=== PATIENT | female | born 1945 | race Caucasian/White ===

== ENCOUNTER 2017-04-11 13:48 | Outpatient (CLI) | payer OTHER, MEDICARE ==
--- NOTE | 2017-04-11 18:24 | Ultrasound Report ---
LEFT BREAST ULTRASOUND: 04/11/2017 CLINICAL INDICATION: Palpable abnormality. TECHNIQUE: Real-time scanning was performed with volunteer patient representative static images obtained. Ultrasound of the palpable abnormality identified by the patient in the left upper-outer quadrant was performed. At the 2 o'clock position, 3 cm from the nipple, a simple cyst is again seen, now measur ing 2.9 x 2.6 x 1.3 cm (previously 2.5 x 2.3 x 1.2 cm). No sonographically suspicious findings are i dentified. IMPRESSION: SIMPLE CYST, ACCOUNTING FOR THE PALPABLE ABNORMALITY. RECOMMENDATION: ROUTINE ANNUAL SCREENING UNLESS OTHERWISE CLINICALLY INDICATED. BIRADS CATEGORY: 2, BENIGN FINDINGS. JOB #: [id number] EXT JOB #:
--- NOTE | 2017-04-11 18:27 | Mammography Report ---
DIGITAL DIAGNOSTIC BILATERAL MAMMOGRAM: 04/11/2017 CLINICAL INDICATION: Palpable abnormality left breast. TECHNIQUE: Bilateral CC and MLO views, bilateral laterally exaggerated craniocaudal views, left true lateral view. A marker was placed at the site of palpable abnormality identified by the patient. COMPARISON: 05/20/2016, 12/05/2013. FINDINGS: The breasts again demonstrate heterogeneously dense fibroglandular parenchyma bilaterally. Biopsy marker in the right upper central breast is stable. The palpable abnormality correlates wit h a partially circumscribed nodule in the left upper outer quadrant, now measuring 3 cm, increased in size from previous examinations. A few punctate, typically benign calcifications are present. Plea se also refer to left breast ultrasound of the same day. IMPRESSION: BENIGN FINDINGS, WITH A SIMPLE CYST ON ULTRASOUND CORRELATING WITH THE MAMMOGRAPHIC AND PALPABLE ABNORMALITY. RECOMMENDATION: Routine annual screening unless otherwise clinically indicated. BI-RADS category 2, benign findings. STANDARD QUALIFYING STATEMENTS 1. This examination was reviewed with the aid of Computer-Aided Detection (CAD). 2. A negative or benign imaging report should not delay biopsy if clinically suspicious findings are present. Consider surgical consultation if warranted. More than 5% of cancers are not identified by i ivis. 3. Dense breasts may obscure an underlying neoplasm. JOB #: [id number] EXT JOB #:[id number]
== END 2017-04-11 13:49 | disposition home or self-care (01) ==
LOC: DI 13:48
PROVIDERS: ATTEND Family Medicine
DX: N60.02 Solitary cyst of left breast (principal)
CPT/HCPCS: 76642; 77066

== ENCOUNTER 2017-06-16 16:45 | Outpatient (CLI) | payer MEDICARE, OTHER ==
[2017-06-16 19:12] LABS: BASOPHILS % (AUTO) 0.3 %; EOSINOPHILS % (AUTO) 0.7 %; HCT - HEMATOCRIT 41.4 % (37.0-47.0); HGB - HEMOGLOBIN 13.9 g/dL (12.0-16.0); LYMPHOCYTES # (AUTO) 2.4 10^3/uL (1.5-3.5); LYMPHOCYTES % (AUTO) 40.2 %; MEAN CORPUSCULAR HEMOGLOBIN 30.9 pg (27.0-31.0); MEAN CORPUSCULAR HGB CONC 33.5 g/dL (32.0-36.0); MEAN CORPUSCULAR VOLUME 92.2 fL (81.0-99.0); MEAN PLATELET VOLUME 7.9 fL (7.9-10.8); MONOCYTES # (AUTO) 0.5 10^3/uL (0.0-1.0); MONOCYTES % (AUTO) 8.6 %; NEUTROPHILS % (AUTO) 50.2 %; RED BLOOD COUNT 4.49 10^6/uL (4.20-5.40); RED CELL DISTRIBUTION WIDTH 13.1 % (12.0-15.0); UNCORRECTED WHITE BLOOD COUNT 5.9 x10^3/uL; WHITE BLOOD COUNT 5.9 x10^3/uL (4.8-10.8)
[2017-06-16 19:38] LABS: CALCIUM 9.1 mg/dL (8.5-10.3); CREATININE 0.9 mg/dL (0.4-1.0); POTASSIUM 3.6 mmol/L (3.5-5.0)
== END 2017-06-16 16:46 | disposition home or self-care (01) ==
LOC: LAB.WCP 16:45
PROVIDERS: ATTEND Family Medicine
DX: M12.832 Other specific arthropathies, not elsewhere classified, left wrist (principal)
CPT/HCPCS: 36415; 80048; 85025; 85651

== ENCOUNTER 2017-06-17 12:41 | Outpatient (CLI) | payer MEDICARE, OTHER ==
--- NOTE | 2017-06-17 13:37 | XRAY Report ---
EXAM: LEFT WRIST RADIOGRAPHY EXAM DATE: 06/17/2017 01:13 PM. CLINICAL HISTORY: ARTHRITIS, LEFT WRIST. Awoke to find hand red and swollen and very painful. Lump on the back of her hand, has now disappeared but bruising has spread into her fingers. COMPARISON: None. TECHNIQUE: 3 views. FINDINGS: Bones: No definite acute fractures or acute bone lesions. An ossification measuring approximately 2.3 x 7.2 mm and a smaller somewhat linear ossification just distal to that demonstrated along the dorsa l aspect of the wrist at the distal aspect distal carpal row and near the dorsal margin of the carpom etacarpal joints. This could represent degenerative disease or adjacent soft tissue calcification. Ol d fracture fragments are possibly. Acute fractures considered unlikely. Joints: Mild radiocarpal joint degenerative disease. No subluxation. Soft Tissues: Evidence of dorsal wrist soft tissue swelling. No soft tissue gas. IMPRESSION: 1. No definite acute osseous abnormality. 2. Mild degenerative disease. 3. Ossifications at the dorsal aspect of the wrist could be degenerative in nature or could represent old fracture fragments. Acute fractures are considered less likely. 4. Dorsal wrist soft tissue swelling. [facility] Referring Provider Line: [phone] SITE ID: [id number]
== END 2017-06-17 12:42 | disposition home or self-care (01) ==
LOC: DI 12:41
PROVIDERS: ATTEND Family Medicine
DX: M19.032 Primary osteoarthritis, left wrist (principal); M25.832 Other specified joint disorders, left wrist; R22.32 Localized swelling, mass and lump, left upper limb

== ENCOUNTER 2018-04-27 08:00 | Outpatient (CLI) | payer OTHER, MEDICARE ==
[2018-04-27 14:42] LABS: ALBUMIN 4.8 g/dL (3.2-5.5); ALBUMIN/GLOBULIN RATIO 1.6 (1.0-2.2); ALKALINE PHOSPHATASE 59 IU/L (42-121); ALT ALANINE AMINOTRANSFERASE 15 IU/L (10-60); AST ASPARTATE AMINOTRANSFERASE 24 IU/L (10-42); BASOPHILS % (AUTO) 0.5 %; BILIRUBIN,TOTAL 0.2 mg/dL (0.2-1.0); BUN - BLOOD UREA NITROGEN 12 mg/dL (6-20); CALCIUM 9.7 mg/dL (8.5-10.3); CARBON DIOXIDE - CO2 31 mmol/L (21-32); CHLORIDE 99 mmol/L (101-111); CREATININE 0.6 mg/dL (0.4-1.0); EOSINOPHILS % (AUTO) 0.8 %; GFR - MDRD 98 (>89); GLUCOSE 79 mg/dL (70-100); HGB - HEMOGLOBIN 15.4 g/dL (12.0-16.0); LYMPHOCYTES # (AUTO) 1.6 10^3/uL (1.5-3.5); LYMPHOCYTES % (AUTO) 35.7 %; MEAN CORPUSCULAR HEMOGLOBIN 31.1 pg (27.0-31.0); MEAN CORPUSCULAR HGB CONC 33.9 g/dL (32.0-36.0); MEAN CORPUSCULAR VOLUME 91.7 fL (81.0-99.0); MONOCYTES # (AUTO) 0.3 10^3/uL (0.0-1.0); MONOCYTES % (AUTO) 6.6 %; NEUTROPHILS # (AUTO) 2.5 10^3/uL (1.5-6.6); NEUTROPHILS % (AUTO) 56.4 %; PLT - PLATELET COUNT 287 10^3/uL (130-450); RED BLOOD COUNT 4.96 10^6/uL (4.20-5.40); RED CELL DISTRIBUTION WIDTH 13.6 % (12.0-15.0); SODIUM 139 mmol/L (135-145); TOTAL PROTEIN 7.8 g/dL (6.7-8.2); WHITE BLOOD COUNT 4.5 x10^3/uL (4.8-10.8)
[2018-04-27 15:48] LABS: THYROID STIMULATING HORMONE 1.43 uIU/mL (0.34-5.60)
[2018-04-27 15:57] LABS: FOLATE 17.27 ng/mL (5.90 - >24.8)
== END 2018-04-27 08:01 | disposition home or self-care (01) ==
LOC: LAB.WCP 08:00
PROVIDERS: ATTEND Family Medicine
DX: R41.3 Other amnesia (principal)
CPT/HCPCS: 36415; 80053; 81599; 82607; 82746; 83921; 84443; 85025; 86592

== ENCOUNTER 2018-05-22 16:38 | Outpatient (CLI) | payer OTHER, MEDICARE ==
[2018-05-22] MEDS ORDERED: GADOBUTROL 7.5 MMOL/7.5 ML VIAL ONE (17:07)
[2018-05-22] MEDS ORDERED: GADOBUTROL 7.5 MMOL/7.5 ML VIAL IVP ONE (17:51)
--- NOTE | 2018-05-23 08:56 | MRI Report ---
Reason: MEMORY LOSS Procedure Date: 05/22/2018 Accession Number: [id number] / [id number] Procedure: MRI - Brain W/WO CPT Code: FULL RESULT: EXAM: MRI BRAIN WITHOUT AND WITH CONTRAST EXAM DATE: 05/22/2018 06:06 PM. CLINICAL HISTORY: MEMORY LOSS. COMPARISON: None. TECHNIQUE: Multiplanar, multisequence T1-weighted and fluid-sensitive MR sequences of the brain were performed. Sequences optimized for routine evaluation. Other: None. Postprocessing: Brain volumetrics determined using [employer] automated analysis on a separate, stand-alone workstation as no objective measure of parenchymal volume to follow over time. IV Contrast: 6 cc Gadavist. FINDINGS: Brain Volume: Normal for age. Parenchyma: No acute parenchymal hemorrhage, mass, or midline shift. Mild bilateral areas of T2/flair signal hyperintensity seen. No areas of restricted diffusion seen to suggest acute infarct. No definite areas of abnormal hemosiderin deposition. No abnormal postcontrast enhancement. Quantitative Cerebral Volumetric Analysis: -Cortical Gonzales Matter (Percent Of Icv): Left, 223.46 Cc (14.96) Percent. Right, 215.11 Cc (14.40) Percent. . -Hippocampi: Left, 2.71 Cc (0.18) Percent. Right, 2.64 Cc (0.18) Percent. Asymmetry Index 2.84 Percent, Within Normal Limits. -Total Hippocampal Volume*: 5.35 Cc, fourth Percentile. -Hippocampi occupancy score: 0.67 -Inferior Lateral Ventricle Volume*: 2.72 Cc, 70th Percentile. (*Percentiles Adjusted For Age And Icv). Ventricles/Cisterns: No hydrocephalus. No abnormal extra-axial fluid collection or hemorrhage. Orbits: Symmetric and unremarkable. Sella Turcica: The pituitary gland, cavernous sinuses, suprasellar cistern and optic chiasm are unremarkable. IAC: Symmetric and unremarkable. Vasculature: Normal signal flow void is seen in the major arterial structures at the skull base. The dural sinuses are patent and enhance normally. Sinuses: No acute sinus disease. Bones: No focal pathologic appearing marrow signal changes. Other: None. IMPRESSION: 1. No acute intracranial pathology seen, no acute infarct, acute intracranial hemorrhage, mass, hydrocephalus, or midline shift. 2. Mild white matter changes seen that are nonspecific, but most likely represent sequela of chronic small vessel ischemic disease. 3. Hippocampi appear symmetric in size with hippocampal volume measuring 5.35 cc representing the fourth normative percentile for age. Hippocampal occupancy score measures 0.67 which is between 1-2 standard deviations below normal. Overall hippocampal values appear abnormal and may be associated with an increase incidence of Alzheimer's disease or increased risk of developing Alzheimer's disease in patients with mild cognitive impairment. [facility]
== END 2018-05-22 16:39 | disposition home or self-care (01) ==
LOC: DI 16:38
PROVIDERS: ATTEND Family Medicine
DX: R41.3 Other amnesia (principal); G93.89 Other specified disorders of brain
CPT/HCPCS: 70553; A9585

== ENCOUNTER 2018-10-26 08:00 | Outpatient (CLI) | payer OTHER, MEDICARE ==
[2018-10-26 12:56] LABS: BASOPHILS % (AUTO) 0.3 %; EOSINOPHILS % (AUTO) 0.5 %; HGB - HEMOGLOBIN 14.1 g/dL (12.0-16.0); LYMPHOCYTES # (AUTO) 1.8 10^3/uL (1.5-3.5); LYMPHOCYTES % (AUTO) 50.2 %; MEAN CORPUSCULAR HEMOGLOBIN 29.9 pg (27.0-31.0); MEAN CORPUSCULAR VOLUME 90.6 fL (81.0-99.0); MEAN PLATELET VOLUME 7.9 fL (7.9-10.8); MONOCYTES # (AUTO) 0.4 10^3/uL (0.0-1.0); NEUTROPHILS # (AUTO) 1.4 10^3/uL (1.5-6.6); PLT - PLATELET COUNT 277 10^3/uL (130-450); RED BLOOD COUNT 4.71 10^6/uL (4.20-5.40); RED CELL DISTRIBUTION WIDTH 12.8 % (12.0-15.0); WHITE BLOOD COUNT 3.7 x10^3/uL (4.8-10.8)
[2018-10-26 13:14] LABS: ALBUMIN/GLOBULIN RATIO 1.5 (1.0-2.2); BILIRUBIN,TOTAL 0.7 mg/dL (0.2-1.0); CALCIUM 9.1 mg/dL (8.5-10.3); CREATININE 0.6 mg/dL (0.4-1.0); TOTAL PROTEIN 6.6 g/dL (6.7-8.2)
== END 2018-10-26 23:59 | disposition home or self-care (01) ==
LOC: LAB.WCP 08:00
PROVIDERS: ATTEND Family Medicine
DX: E53.8 Deficiency of other specified B group vitamins (principal); K62.5 Hemorrhage of anus and rectum
CPT/HCPCS: 36415; 80053; 82607; 85025

== ENCOUNTER 2019-02-21 13:04 | Outpatient (CLI) | payer OTHER, MEDICARE ==
--- NOTE | 2019-02-22 09:45 | XRAY Report ---
Reason: COUGH, SORE THROAT Procedure Date: 02/21/2019 Accession Number: [id number] / [id number] Procedure: XR - Chest 2 View X-Ray CPT Code: 09612 FULL RESULT: EXAM: CHEST RADIOGRAPHY EXAM DATE: 02/21/2019 02:13 PM. CLINICAL HISTORY: COUGH, SORE THROAT. COMPARISON: XR CHEST PA AND LAT 11/03/2012 10:53 AM. TECHNIQUE: 2 views. FINDINGS: Lungs/Pleura: No focal opacities evident. No pleural effusion. No pneumothorax. Normal volumes. Mediastinum: Heart and mediastinal contours are unremarkable. Other: Mild dextroconvexity scoliosis redemonstrated. IMPRESSION: No acute abnormality of the chest demonstrated. [facility]
== END 2019-02-21 13:05 | disposition home or self-care (01) ==
LOC: DI 13:04
PROVIDERS: ATTEND Otolaryngology
DX: R05 Cough (principal); J02.9 Acute pharyngitis, unspecified
CPT/HCPCS: 71046

== ENCOUNTER 2019-08-09 08:00 | Outpatient (CLI) | payer MEDICARE, OTHER | END 2019-08-09 23:59 | disposition home or self-care (01) | LOC: LAB.R 08:00 | PROVIDERS: ATTEND Family Medicine | DX: R10.9 Unspecified abdominal pain (principal) | CPT/HCPCS: 87086 ==

== ENCOUNTER 2019-08-22 14:25 | Outpatient (CLI) | payer MEDICARE, OTHER ==
[2019-08-22] MEDS ORDERED: IOVERSOL 320 100 ML VIAL IVP ONE ×2 (14:37→15:54)
[2019-08-22] MEDS ORDERED: IOVERSOL 320 50 ML VIAL ONE (14:37)
[2019-08-22 15:06] LABS: ALBUMIN 4.5 g/dL (3.2-5.5); ALBUMIN/GLOBULIN RATIO 1.7 (1.0-2.2); BILIRUBIN,TOTAL 0.8 mg/dL (0.2-1.0); CALCIUM 9.6 mg/dL (8.5-10.3); CREATININE 0.7 mg/dL (0.4-1.0); TOTAL PROTEIN 7.1 g/dL (6.7-8.2)
[2019-08-22] MEDS ORDERED: IOVERSOL 320 50 ML VIAL PO ONE (15:54)
--- NOTE | 2019-08-23 00:45 | CT Report ---
Reason: DIVERTICULITIS Procedure Date: 08/22/2019 Accession Number: [id number] / [id number] Procedure: CT - Abdomen/Pelvis W CPT Code: Final Report FULL RESULT: EXAM: CT ABDOMEN AND PELVIS EXAM DATE: 08/22/2019 03:58 PM. CLINICAL HISTORY: DIVERTICULITIS. COMPARISONS: None. TECHNIQUE: Routine helical CT imaging was performed through the abdomen and pelvis. IV contrast: 100 ML Optiray 320. Enteric contrast: Yes. Reconstructions: Coronal and sagittal. In accordance with CT protocol optimization, one or more of the following dose reduction techniques were utilized for this exam: automated exposure control, adjustment of mA and/or KV based on patient size, or use of iterative reconstructive technique. FINDINGS: Lung Bases: Unremarkable. Liver: Mildly hypodense relative to spleen suggesting mild fatty infiltration. Liver otherwise unremarkable. Gallbladder/Bile Ducts: Unremarkable. Spleen: Normal. Pancreas: Normal. Adrenal Glands: Normal. Kidneys: Unremarkable. No masses or hydronephrosis. Peritoneal Cavity/Bowel: No bowel obstruction or bowel wall thickening. Distal colonic diverticula without evidence of acute diverticulitis. No free fluid, free air or adenopathy. No masses or acute inflammatory process. Appendix not seen. No secondary findings to suggest appendicitis. Pelvic Organs: Bladder unremarkable given degree of filling. Status post hysterectomy. Ovaries not visualized. Vasculature: Mild scattered atherosclerosis. Vascular structures otherwise unremarkable as visualized. No aneurysm. Bones: No significant osseous abnormality. Other: None. IMPRESSION: 1. No evidence of inflammatory or obstructive process in the abdomen or pelvis. 2. Colonic diverticula without findings to suggest acute diverticulitis. 3. Mild fatty liver. [facility]
== END 2019-08-22 14:26 | disposition home or self-care (01) ==
LOC: LAB 14:25
PROVIDERS: ATTEND Family Medicine
DX: K57.90 Diverticulosis of intestine, part unspecified, without perforation or abscess without bleeding (principal)
CPT/HCPCS: 36415; 74177; 80053; Q9967

== ENCOUNTER 2019-09-19 07:33 | Day surgery (SDC) | payer MEDICARE, OTHER ==
[2019-09-19] MEDS ORDERED: LACTATED RINGERS 1,000 ML IV ONE ×2 (08:01→10:11)
--- NOTE | 2019-09-19 08:24 | ANESTHESIA ---
Pre-Anesthesia VS, & Labs - Diagnosis internal hemorrhoids - Procedure EUA and colonoscopy Vital Signs: Temp Pulse Resp BP Pulse Ox 36.5 C 73 16 114/79 99 09/19/19 07:44 09/19/19 07:44 09/19/19 07:44 09/19/19 07:44 09/19/19 07:44 Height 5 ft 2 in Weight (kg) 56.1 kg Body Mass Index 22.8 - Is Patient ?: No Home Medications and Allergies Home Medications: Ambulatory Orders Donepezil [Aricept] 5 mg PO DAILY 09/17/19 Donepezil [Aricept] 5 mg PO DAILY 09/17/19 Allergies/Adverse Reactions: Allergies Allergy/AdvReac Type Severity Reaction Status Date / Time No Known Drug Allergies Allergy Verified 09/17/19 11:17 Anes History & Medical History - Anesthetic History Anesthesia Complications: reports: No previous complications Family history of Anesthesia Complications: Denies Family history of Malignant Hyperthermia: Denies - Medical History Cardiovascular: reports: None Pulmonary: reports: None Gastrointestinal: reports: Hemorrhoids, Diverticulitis Urinary: reports: None Neuro: reports: Dementia Musculoskeletal: reports: None Endocrine/Autoimmune: reports: None Blood Disorders: reports: None Skin: reports: None Smoking Status: Former smoker ("not smoked in years") Psychosocial: reports: No issues indicated - Surgical History General: Appendectomy, Colonoscopy Gynecologic: Hysterectomy Exam General: Alert, Oriented x3, Cooperative, No acute distress Dental: WNL Mouth Openin Fingerbreadth Neck Mobility: Normal Mallampati classification: I Thyromental Distance: 4-6 cm Respiratory: Lungs clear, Normal breath sounds, No respiratory distress, No accessory muscle use Cardiovascular: Regular rate, Normal S1, Normal S2, No murmurs Abdomen: Normal bowel sounds, Soft, No tenderness, No hepatospenomegaly, No masses Extremities: No clubbing, No cyanosis, No edema, Normal pulses, No tenderness/swelling Neurological: Normal gait, Normal speech, Strength at 5/5 X4 ext, Normal tone, Sensation intact, Cranial nerves 3-12 NL, Reflexes 2+ Mental/Cognitive Status: Alert/Oriented X3, Normal for patient Cognitive Status: Within normal limits Plan Anesthesia Type: MAC Consent for Procedure(s) Verified and Reviewed: Yes Code Status: Attempt Resuscitation ASA classification: 2-Mild systemic disease Is this case an emergency?: No
[2019-09-19] MEDS ORDERED: ONDANSETRON 4 MG/2 ML VIAL ONE (10:02)
[2019-09-19] MEDS ORDERED: fentaNYL 100 MCG/2 ML VIAL ONE (10:02)
[2019-09-19] MEDS ORDERED: ACETAMINOPHEN 325 MG TABLET PO ONE (10:48)
[2019-09-19 11:06] VITALS: BP 105/56
--- NOTE | 2019-10-01 17:28 | OPERATIVE REPORT ---
Operative Report - General Procedure Date: 09/19/19 Planned Procedure: Hemorrhoid Banding Pre-Op Diagnosis: Prolapsing internal hemorrhoids Procedure Performed: 3 column internal hemorrhoid banding Post Op Diagnosis: Prolapsing internal hemorrhoids, suspected lichen sclerosis - Procedure Note Primary Surgeon: Francesca Anesthesia Provider: ALANA Young Anesthesia Technique: Moderate sedation Pathology: None Estimated Blood Loss (mL): 1 Findings: 1. 3 columns of enlarged internal hemorrhoids. A single column with prolapse 2. Thin, patchy perineal skin consistent with lichen sclerosis Complications: None apparent - Other Other Information/Narrative: Once the colonoscopy was completed and the instrumentRemoved from the patient's body, we proceeded with hemorrhoid banding. The retractor was lubricated and placed in the patient's anal canal. 3 separate columns of internal hemorrhoids could be appreciated with only a single column prolapsing all the way into the anal canal. Using the banding device, the hemorrhoid complexes were grasped delivering a single band at the base of each 1. When the procedure was completed, the external appearance of the anal canal was significantly changed with no obvious prolapse.It is notable that the skin of the perineal region from the perianal region all the way to the urethra is patchy, thin, and mixed with areas of erythema and blanching. This is consistent with lichen sclerosis. Due to the extensive manipulation of the area today, no additional biopsy was obtained.Once the last band had been applied, the retractor was removed from the anal canal, and the procedure concluded.
== END 2019-09-19 07:34 | disposition home or self-care (01) ==
LOC: SDS 07:33
PROVIDERS: ATTEND Surgery
PROC: 0DBP8ZX Excision of Rectum, Via Natural or Artificial Opening Endoscopic, Diagnostic (ICD-10-PCS; 2019-09-19)
PROC: 0DBE8ZX Excision of Large Intestine, Via Natural or Artificial Opening Endoscopic, Diagnostic (ICD-10-PCS; principal; 2019-09-19 09:00)
PROC: 06LY3CC Occlusion of Hemorrhoidal Plexus with Extraluminal Device, Percutaneous Approach (ICD-10-PCS; 2019-09-19 09:00)
DX: Z12.11 Encounter for screening for malignant neoplasm of colon (principal); K57.31 Diverticulosis of large intestine without perforation or abscess with bleeding; K64.2 Third degree hemorrhoids; K64.4 Residual hemorrhoidal skin tags; K63.89 Other specified diseases of intestine; I10 Essential (primary) hypertension; K58.9 Irritable bowel syndrome, unspecified; Z87.891 Personal history of nicotine dependence
CPT/HCPCS: 45380; 46221; 83630; 87015; 87045; 87046; 87177; 87209; 87272; 87329; 87493; A9270; J7120

== ENCOUNTER 2020-04-01 17:10 | Outpatient (CLI) | payer MEDICARE, OTHER ==
--- NOTE | 2020-04-01 17:14 | XRAY Report ---
PROCEDURE: Lumbar Spine 2 View INDICATIONS: LOW BACK PAIN TECHNIQUE: 2 views of the lumbar spine were acquired. COMPARISON: None. FINDINGS: Bones: 5 [id number]-bud-umcuaxi vertebrae are present. There is levoscoliotic bony alignment, mild in inessa rity, centered at L2-L3.. No vertebral body compression fractures. No suspicious bony lesions. Not e is made of mild to moderate degenerative facet osteoarthritis at L3-4 and moderate such degeneratio n at L4-5 and L5-S1. Mild disc height reduction is superimposed at L1-4-5, and combined these degener ative factors result in mild ligamentous laxity allowing mild grade 1 anterolisthesis of L4 on L5. Soft tissues: Overlying bowel gas pattern is normal. No suspicious soft tissue calcifications. IMPRESSION: Mild degenerative disc disease, mild to moderate facet osteoarthritis overall, allowing mild grade 1 anterolisthesis of L4 on L5. Mild convex leftward scoliosis is noted. Definite spinal an d foraminal stenosis is not found. Reviewed by: Ranulfo Alas MD on 04/01/2020 5:13 PM PDT Approved by: Ranulfo Alas MD on 04/01/2020 5:13 PM PDT Station ID: [id number]
[2020-04-01 18:35] LABS: BASOPHILS % (AUTO) 0.6 %; EOSINOPHILS % (AUTO) 0.7 %; LYMPHOCYTES # (AUTO) 2.9 10^3/uL (1.5-3.5); LYMPHOCYTES % (AUTO) 52.9 %; MEAN CORPUSCULAR HEMOGLOBIN 29.9 pg (27.0-31.0); MEAN CORPUSCULAR HGB CONC 32.1 g/dL (32.0-36.0); MEAN CORPUSCULAR VOLUME 93.2 fL (81.0-99.0); MEAN PLATELET VOLUME 10.2 fL (7.9-10.8); MONOCYTES # (AUTO) 0.4 10^3/uL (0.0-1.0); NEUTROPHILS # (AUTO) 2.1 10^3/uL (1.5-6.6); NEUTROPHILS % (AUTO) 38.4 %; PLT - PLATELET COUNT 293 10^3/uL (130-450); RED BLOOD COUNT 4.68 10^6/uL (4.20-5.40); RED CELL DISTRIBUTION WIDTH 13.1 % (12.0-15.0); WHITE BLOOD COUNT 5.4 x10^3/uL (4.8-10.8)
[2020-04-01 18:51] LABS: ALBUMIN 4.5 g/dL (3.2-5.5); ALBUMIN/GLOBULIN RATIO 1.9 (1.0-2.2); BILIRUBIN,TOTAL 0.6 mg/dL (0.2-1.0); CALCIUM 9.6 mg/dL (8.5-10.3); CREATININE 0.8 mg/dL (0.4-1.0); TOTAL PROTEIN 6.9 g/dL (6.7-8.2)
== END 2020-04-01 23:59 | disposition home or self-care (01) ==
LOC: DI.WCP 17:10
PROVIDERS: ATTEND Family Medicine
DX: M51.36 Other intervertebral disc degeneration, lumbar region (principal); M47.816 Spondylosis without myelopathy or radiculopathy, lumbar region; M41.86 Other forms of scoliosis, lumbar region; R10.9 Unspecified abdominal pain
CPT/HCPCS: 36415; 72100; 80053; 82150; 83690; 84134; 85025

== ENCOUNTER 2020-06-15 15:24 | Outpatient (CLI) | payer MEDICARE, OTHER | END 2020-06-15 15:25 | disposition home or self-care (01) | LOC: COV 15:24 | PROVIDERS: ATTEND Surgery | DX: Z01.818 Encounter for other preprocedural examination (principal); R63.0 Anorexia; R10.9 Unspecified abdominal pain; Z20.828 Contact with and (suspected) exposure to other viral communicable diseases ==

== ENCOUNTER 2020-06-18 08:26 | Day surgery (SDC) | payer MEDICARE, OTHER ==
[2020-06-18] MEDS ORDERED: LACTATED RINGERS 1,000 ML IV ONE ×2 (09:16→12:02)
[2020-06-18] MEDS ORDERED: LIDO GARGLE 30 ML BOTTLE ONE (09:49)
[2020-06-18 09:59] LABS: C. PNEUMONIAE- RESP PCR PANEL NOT DETECTED
[2020-06-18] MEDS ORDERED: fentaNYL 250 MCG/5 ML VIAL IVP ONE (10:37)
[2020-06-18] MEDS ORDERED: MIDAZOLAM 2 MG/2 ML VIAL IVP ONE (10:37)
[2020-06-18] MEDS ORDERED: LIDO GARGLE 30 ML BOTTLE PO ONE (10:43)
[2020-06-18] MEDS ORDERED: BENZOCAINE/TETRACAINE/BUTAMBEN 20 GM TOP ONE (10:44)
[2020-06-18 11:22] VITALS: BP 100/61
== END 2020-06-18 08:27 | disposition home or self-care (01) ==
LOC: SDS 08:26
PROVIDERS: ATTEND Surgery
PROC: 0DB68ZX Excision of Stomach, Via Natural or Artificial Opening Endoscopic, Diagnostic (ICD-10-PCS; 2020-06-18)
PROC: 0DB58ZX Excision of Esophagus, Via Natural or Artificial Opening Endoscopic, Diagnostic (ICD-10-PCS; 2020-06-18)
PROC: 0DB98ZX Excision of Duodenum, Via Natural or Artificial Opening Endoscopic, Diagnostic (ICD-10-PCS; principal; 2020-06-18 09:45)
DX: R63.4 Abnormal weight loss (principal); R63.0 Anorexia; K25.9 Gastric ulcer, unspecified as acute or chronic, without hemorrhage or perforation; K44.9 Diaphragmatic hernia without obstruction or gangrene; K29.50 Unspecified chronic gastritis without bleeding; Z20.828 Contact with and (suspected) exposure to other viral communicable diseases; R10.9 Unspecified abdominal pain; I10 Essential (primary) hypertension
CPT/HCPCS: 43239; 87631; A9270; J3010; J7120; 0202U

== ENCOUNTER 2021-04-13 18:37 | Outpatient (CLI) | payer MEDICARE, OTHER ==
--- NOTE | 2021-04-13 19:35 | XRAY Report ---
PROCEDURE: Toe(s) RT INDICATIONS: CONTUSION OF R GREAT TOE TECHNIQUE: 3 views of the first toe(s) acquired. COMPARISON: None FINDINGS: Bones: No definite fractures or dislocations. Subtle linear lucency involving lateral cortex of fir st distal phalangeal base is seen. Osteoarthritic changes are seen in first MTP joint and first inter phalangeal joint. No suspicious bony lesions. Soft tissues: No suspicious soft tissue densities. IMPRESSION: Subtle linear lucency involving lateral aspect of first distal phalangeal base concerning for subtle nondisplaced fracture. No other fracture or dislocation is seen. 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 Reviewed by: Watson Verduzco MD on 04/13/2021 7:33 PM PDT Approved by: Watson Verduzco MD on 04/13/2021 7:33 PM PDT Station ID: [id number]
== END 2021-04-13 23:59 | disposition home or self-care (01) ==
LOC: DI.N 18:37
PROVIDERS: ATTEND Family Medicine
DX: S90.111A Contusion of right great toe without damage to nail, initial encounter (principal); M19.071 Primary osteoarthritis, right ankle and foot; R93.6 Abnormal findings on diagnostic imaging of limbs

== ENCOUNTER 2021-04-19 10:22 | Outpatient (CLI) | payer MEDICARE, OTHER ==
[2021-04-19 11:50] LABS: BASOPHILS % (AUTO) 0.4 %; EOSINOPHILS % (AUTO) 0.6 %; HCT - HEMATOCRIT 46.5 % (37.0-47.0); HGB - HEMOGLOBIN 15.1 g/dL (12.0-16.0); LYMPHOCYTES # (AUTO) 2.4 10^3/uL (1.5-3.5); LYMPHOCYTES % (AUTO) 48.4 %; MEAN CORPUSCULAR HGB CONC 32.5 g/dL (32.0-36.0); MEAN CORPUSCULAR VOLUME 92.4 fL (81.0-99.0); MEAN PLATELET VOLUME 9.7 fL (7.9-10.8); MONOCYTES # (AUTO) 0.4 10^3/uL (0.0-1.0); MONOCYTES % (AUTO) 7.1 %; NEUTROPHILS # (AUTO) 2.1 10^3/uL (1.5-6.6); NEUTROPHILS % (AUTO) 43.3 %; PLT - PLATELET COUNT 274 10^3/uL (130-450); RED BLOOD COUNT 5.03 10^6/uL (4.20-5.40); WHITE BLOOD COUNT 4.9 x10^3/uL (4.8-10.8)
[2021-04-19 12:06] LABS: ALBUMIN 4.7 g/dL (3.2-5.5); ALBUMIN/GLOBULIN RATIO 1.7 (1.0-2.2); ALKALINE PHOSPHATASE 62 IU/L (42-121); ALT ALANINE AMINOTRANSFERASE 11 IU/L (10-60); AST ASPARTATE AMINOTRANSFERASE 22 IU/L (10-42); BUN - BLOOD UREA NITROGEN 15 mg/dL (6-20); CALCIUM 9.7 mg/dL (8.5-10.3); CARBON DIOXIDE - CO2 29 mmol/L (21-32); CHLORIDE 99 mmol/L (101-111); CHOL/HDL RATIO 5.8 (<4.4); CHOLESTEROL 364 mg/dL; CREATININE 0.8 mg/dL (0.4-1.0); GFR - MDRD 70 (>89); GLUCOSE 100 mg/dL (70-100); HDL CHOLESTEROL 63 mg/dL; LDL CHOLESTEROL,CALCULATED 273 mg/dL; LDL/HDL RATIO 4.3 (<4.4); POTASSIUM 4.2 mmol/L (3.5-5.0); SODIUM 138 mmol/L (135-145); TOTAL PROTEIN 7.4 g/dL (6.7-8.2); TRIGLYCERIDES 140 mg/dL; VLDL CHOLESTEROL 28 mg/dL
[2021-04-19 12:18] LABS: THYROID STIMULATING HORMONE 1.42 uIU/mL (0.34-5.60)
== END 2021-04-19 10:23 | disposition home or self-care (01) ==
LOC: LAB.N 10:22
PROVIDERS: ATTEND Family Medicine
DX: E78.5 Hyperlipidemia, unspecified (principal); I75.029 Atheroembolism of unspecified lower extremity
CPT/HCPCS: 36415; 80053; 80061; 83721; 84443; 85025

== ENCOUNTER 2021-05-21 08:00 | Outpatient (CLI) | payer MEDICARE, OTHER | END 2021-05-21 23:59 | disposition home or self-care (01) | LOC: LAB.N 08:00 | PROVIDERS: ATTEND Family Medicine | DX: R05.3 Chronic cough (principal); Z20.822 Contact with and (suspected) exposure to COVID-19 ==

== ENCOUNTER 2021-05-21 16:45 | Outpatient (CLI) | payer MEDICARE, OTHER ==
--- NOTE | 2021-05-21 22:43 | XRAY Report ---
PROCEDURE: Chest 2 View X-Ray INDICATIONS: UNEXPLAINED COUGH TECHNIQUE: 2 view(s) of the chest. COMPARISON: None. FINDINGS: Surgical changes and devices: None. Lungs and pleura: No pleural effusions or pneumothorax. Lungs are clear. Mediastinum: Mediastinal contours are normal. Heart size is normal. Bones and chest wall: No suspicious bony abnormalities. Soft tissues appear unremarkable. Generali zed decreased osseous mineralization present. Convex right thoracic scoliosis present. IMPRESSION: No acute cardiopulmonary findings Reviewed by: Kavin Delaney MD on 05/21/2021 9:42 PM AKDT Approved by: Kavin Delaney MD on 05/21/2021 9:42 PM AKDT Station ID: [id number]
== END 2021-05-21 23:59 | disposition home or self-care (01) ==
LOC: DI.N 16:45
PROVIDERS: ATTEND Family Medicine
DX: R05.3 Chronic cough (principal)

== ENCOUNTER 2021-10-19 16:06 | Outpatient (CLI) | payer MEDICARE, OTHER ==
[2021-10-19 20:40] LABS: BASOPHILS % (AUTO) 0.2 %; EOSINOPHILS # (AUTO) 0.1 10^3/uL (0.0-0.7); EOSINOPHILS % (AUTO) 0.9 %; HGB - HEMOGLOBIN 14.3 g/dL (12.0-16.0); LYMPHOCYTES # (AUTO) 2.8 10^3/uL (1.5-3.5); LYMPHOCYTES % (AUTO) 50.9 %; MEAN CORPUSCULAR HEMOGLOBIN 29.9 pg (27.0-31.0); MEAN CORPUSCULAR HGB CONC 32.5 g/dL (32.0-36.0); MEAN CORPUSCULAR VOLUME 92.1 fL (81.0-99.0); MEAN PLATELET VOLUME 10.6 fL (7.9-10.8); MONOCYTES # (AUTO) 0.4 10^3/uL (0.0-1.0); MONOCYTES % (AUTO) 7.9 %; NEUTROPHILS # (AUTO) 2.2 10^3/uL (1.5-6.6); NEUTROPHILS % (AUTO) 39.9 %; PLT - PLATELET COUNT 282 10^3/uL (130-450); RED BLOOD COUNT 4.78 10^6/uL (4.20-5.40); RED CELL DISTRIBUTION WIDTH 12.9 % (12.0-15.0); WHITE BLOOD COUNT 5.4 x10^3/uL (4.8-10.8)
[2021-10-19 20:43] LABS: BILIRUBIN,URINE NEGATIVE (NEGATIVE); GLUCOSE, URINE (UA) NEGATIVE (NEGATIVE); KETONES,URINE (UA) NEGATIVE (NEGATIVE); LEUKOCYTE ESTERASE, URINE SMALL (NEGATIVE); NITRITE,URINE NEGATIVE (NEGATIVE); OCCULT BLOOD,URINE TRACE-INTA (NEGATIVE); PH,URINE 6.5 PH (5.0-7.5); PROTEIN,URINE NEGATIVE (NEGATIVE); UROBILINOGEN,URINE 0.2 (NORMAL) E.U./dL (NORMAL)
[2021-10-19 21:05] LABS: CLARITY,URINE CLEAR (CLEAR)
[2021-10-19 21:06] LABS: BACTERIA,URINE Few /HPF (None Seen); RBC,URINE 0-5 /HPF (0-5); SQUAMOUS EPITHELIAL CELL,UR FEW Squamous (<= Few)
[2021-10-19 21:08] LABS: THYROID STIMULATING HORMONE 1.3 uIU/mL (0.34-5.60)
[2021-10-19 21:29] LABS: ALBUMIN 4.5 g/dL (3.2-5.5); ALBUMIN/GLOBULIN RATIO 1.8 (1.0-2.2); ALKALINE PHOSPHATASE 52 IU/L (42-121); ALT ALANINE AMINOTRANSFERASE 15 IU/L (10-60); AMYLASE 55 U/L (28-100); AST ASPARTATE AMINOTRANSFERASE 21 IU/L (10-42); BILIRUBIN,TOTAL 0.5 mg/dL (0.2-1.0); BUN - BLOOD UREA NITROGEN 15 mg/dL (6-20); CALCIUM 9.1 mg/dL (8.5-10.3); CARBON DIOXIDE - CO2 29 mmol/L (21-32); CHLORIDE 98 mmol/L (101-111); CREATININE 0.7 mg/dL (0.4-1.0); GFR - MDRD 81 (>89); GLUCOSE 99 mg/dL (70-100); LIPASE 34 U/L (22-51); POTASSIUM 3.7 mmol/L (3.5-5.0); SODIUM 137 mmol/L (135-145)
[2021-10-19 21:30] LABS: CRP - C-REACTIVE PROTEIN < 1.0 mg/dL (0-1.0)
== END 2021-10-19 16:07 | disposition home or self-care (01) ==
LOC: LAB.N 16:06
PROVIDERS: ATTEND Nurse Practitioner
DX: R10.11 Right upper quadrant pain (principal); R53.83 Other fatigue
CPT/HCPCS: 36415; 80053; 81001; 82150; 83690; 84443; 85025; 85651; 86140; 87086

== ENCOUNTER 2022-01-04 09:00 | Outpatient (CLI) | payer MEDICARE, OTHER ==
--- NOTE | 2022-01-04 10:26 | Ultrasound Report ---
PROCEDURE: Abdomen Limited, ultrasound INDICATIONS: RUQ ABD PAIN TECHNIQUE: Real-time focused scanning was performed of the abdomen, with image documentation. COMPARISON: CT abdomen pelvis 08/22/2019 FINDINGS: Liver: Liver shows diffusely decreased attenuation without focal mass lesion. 5 mm echogenic focus r ight hepatic lobe without shadowing noted. Gallbladder: Sonolucent without cholelithiasis. No gallbladder wall thickening. No pericholecystic fluid or Woo's sign. Common Bile Duct: 5.3 mm. Pancreas: Unremarkable as visualized. Right Kidney: Appropriate in size and echotexture. No evidence of hydronephrosis. No shadowing calc mohini. No solid or cystic mass lesion. IMPRESSION: No acute findings. Hepatic fatty infiltration and probable small hemangioma Reviewed by: Kavin Delaney MD on 01/04/2022 9:24 AM AKHO Approved by: Kavin Delaney MD on 01/04/2022 9:24 AM AKHO Station ID: [id number]
--- NOTE | 2022-01-04 11:08 | XRAY Report ---
PROCEDURE: Abdomen 2 View X-Ray INDICATIONS: Pain TECHNIQUE: 2 views of the abdomen were acquired. COMPARISON: CT abdomen pelvis 08/22/2019 FINDINGS: Surgical changes and devices: None. Bowel: No pneumoperitoneum. The bowel gas pattern is normal. Moderate fecal debris in the left col on Soft tissues: No masses; visualized solid organ contours appear normal in size. No suspicious abdom inal calcifications. Bones: No suspicious bony abnormalities. Convex left thoracolumbar scoliosis IMPRESSION: Moderate fecal debris in the left colon and rectum. No obstruction. Reviewed by: Kavin Delaney MD on 01/04/2022 10:07 AM HALLIE Approved by: Kavin Delaney MD on 01/04/2022 10:07 AM HALLIE Station ID: [id number]
== END 2022-01-04 09:01 | disposition home or self-care (01) ==
LOC: DI 09:00
PROVIDERS: ATTEND Family Medicine
DX: R10.819 Abdominal tenderness, unspecified site (principal); R10.11 Right upper quadrant pain

== ENCOUNTER 2022-07-28 15:32 | Outpatient (CLI) | payer MEDICARE, OTHER ==
--- NOTE | 2022-07-29 12:49 | Mammography Report ---
BILATERAL DIGITAL SCREENING MAMMOGRAM: 07/28/2022 CLINICAL: Routine screening. Comparison is made to exams dated: 04/11/2017 ultrasound, 04/11/2017 mammogram, 05/20/2016 ultrasound, 05/20/2016 mammogram, 12/05/2013 ultrasound, and 12/05/2013 mammogram - [facility]. Both breasts are heterogeneously dense, which may obscure small masses (category c / 51-75% glandular tissue). No significant masses, calcifications, or other findings are seen in either breast. There has been no significant interval change. IMPRESSION: NEGATIVE There is no mammographic evidence of malignancy. A 1 year screening mammogram is recommended. Based on the Tyrer Cuzick model (a risk assessment model) the patients lifetime risk is 2.5% and her 10 year risk is 0.0%. According to the ACR, ACS, and NCCN guidelines, an annual breast MRI exam nicole g with mammogram is recommended if the patients lifetime risk is 20% or greater. This exam was interpreted at Station ID: [id number]. NOTE: For mammograms, a report in lay terms will be sent to the patient. Approximately 15% of breast malignancies will not be visualized mammographically. In the management of a palpable breast mass, a negative mammogram must not discourage biopsy of a clinically suspicious lesion. Electronically Signed By: Tay watson/ansley:07/29/2022 09:46:50 ACR BI-RADS Category 1: Negative 3341F PARENCHYMAL PATTERN: (D) - The breast(s) demonstrate(s) heterogeneously dense fibroglandular gomez regan. BI-RADS CATEGORY: (1) - 1 RECOMMENDATION: (ANNUAL) - Recommend routine annual screening mammography. [id number] 1 year screening LATERALITY: (B)
== END 2022-07-28 15:33 | disposition home or self-care (01) ==
LOC: DI.N 15:32
DX: Z12.31 Encounter for screening mammogram for malignant neoplasm of breast (principal)

== ENCOUNTER 2022-11-22 13:37 | Outpatient (CLI) | payer MEDICARE, OTHER ==
[2022-11-22 17:44] LABS: BASOPHILS % (AUTO) 0.4 %; EOSINOPHILS % (AUTO) 0.6 %; HCT - HEMATOCRIT 44.8 % (37.0-47.0); HGB - HEMOGLOBIN 14.1 g/dL (12.0-16.0); LYMPHOCYTES # (AUTO) 2.3 10^3/uL (1.5-3.5); LYMPHOCYTES % (AUTO) 44.9 %; MEAN CORPUSCULAR HEMOGLOBIN 29.5 pg (27.0-31.0); MEAN CORPUSCULAR HGB CONC 31.5 g/dL (32.0-36.0); MEAN CORPUSCULAR VOLUME 93.7 fL (81.0-99.0); MEAN PLATELET VOLUME 10.1 fL (7.9-10.8); MONOCYTES # (AUTO) 0.3 10^3/uL (0.0-1.0); MONOCYTES % (AUTO) 6.4 %; NEUTROPHILS # (AUTO) 2.5 10^3/uL (1.5-6.6); NEUTROPHILS % (AUTO) 47.5 %; PLT - PLATELET COUNT 256 10^3/uL (130-450); RED BLOOD COUNT 4.78 10^6/uL (4.20-5.40); RED CELL DISTRIBUTION WIDTH 13.3 % (12.0-15.0); WHITE BLOOD COUNT 5.2 x10^3/uL (4.8-10.8)
[2022-11-22 18:11] LABS: ALBUMIN 4.5 g/dL (3.2-5.5); ALBUMIN/GLOBULIN RATIO 1.7 (1.0-2.2); ALKALINE PHOSPHATASE 54 IU/L (42-121); ALT ALANINE AMINOTRANSFERASE 14 IU/L (10-60); AST ASPARTATE AMINOTRANSFERASE 21 IU/L (10-42); BILIRUBIN,TOTAL 0.5 mg/dL (0.2-1.0); BUN - BLOOD UREA NITROGEN 16 mg/dL (6-20); CALCIUM 9.5 mg/dL (8.5-10.3); CARBON DIOXIDE - CO2 31 mmol/L (21-32); CHLORIDE 104 mmol/L (101-111); CHOL/HDL RATIO 2.8 (<4.4); CHOLESTEROL 204 mg/dL; CREATININE 0.7 mg/dL (0.4-1.0); GFR - MDRD 81 (>89); GLUCOSE 105 mg/dL (70-100); HDL CHOLESTEROL 72 mg/dL; LDL CHOLESTEROL,CALCULATED 116 mg/dL; LDL/HDL RATIO 1.6 (<4.4); POTASSIUM 4.1 mmol/L (3.5-5.0); SODIUM 141 mmol/L (135-145); TOTAL PROTEIN 7.2 g/dL (6.7-8.2); TRIGLYCERIDES 81 mg/dL; VLDL CHOLESTEROL 16 mg/dL
[2022-11-22 18:20] LABS: THYROID STIMULATING HORMONE 1.41 uIU/mL (0.34-5.60)
[2022-11-22 20:39] LABS: ESTIMATED AVERAGE GLUCOSE 120 mg/dL (70-100); HEMOGLOBIN A1c% 5.8 % (4.27-6.07)
== END 2022-11-22 13:38 | disposition home or self-care (01) ==
LOC: LAB.N 13:37
PROVIDERS: ATTEND Family Medicine
DX: E78.5 Hyperlipidemia, unspecified (principal); R73.9 Hyperglycemia, unspecified; R03.0 Elevated blood-pressure reading, without diagnosis of hypertension; K21.9 Gastro-esophageal reflux disease without esophagitis; E53.8 Deficiency of other specified B group vitamins
CPT/HCPCS: 36415; 80053; 80061; 83036; 83721; 84443; 85025

== ENCOUNTER 2022-12-23 08:00 | Outpatient (CLI) | payer MEDICARE, OTHER | END 2022-12-23 23:59 | disposition home or self-care (01) | LOC: LAB.N 08:00 | PROVIDERS: ATTEND Physician Assistant | DX: N39.0 Urinary tract infection, site not specified (principal) | CPT/HCPCS: 87086 ==

== ENCOUNTER 2023-02-27 15:58 | Outpatient (CLI) | payer MEDICARE, OTHER ==
--- NOTE | 2023-02-28 09:12 | XRAY Report ---
PROCEDURE: Chest 2 View X-Ray INDICATIONS: PAROXYSMAL COUGH TECHNIQUE: 2 views of the chest were acquired. COMPARISON: None. FINDINGS: Surgical changes and devices: None. Lungs and pleura: No pleural effusions or pneumothorax. Lungs are clear. Peribronchial cuffing. Mediastinum: Mediastinal contours appear normal. Heart size is normal. Bones and chest wall: No suspicious bony lesions. Overlying soft tissues appear unremarkable. IMPRESSION: Peribronchial cuffing, suggestive of infectious or inflammatory bronchitis. Reviewed by: Yaw Yanez on 02/28/2023 9:11 AM PDT Approved by: Yaw Yanez on 02/28/2023 9:11 AM PDT Station ID: [id number]
== END 2023-02-27 15:59 | disposition home or self-care (01) ==
LOC: DI 15:58
PROVIDERS: ATTEND Registered Nurse
DX: R05.9 Cough, unspecified (principal)

== ENCOUNTER 2023-12-05 09:45 | Outpatient (CLI) | payer MEDICARE, OTHER ==
[2023-12-05 12:51] LABS: BASOPHILS % (AUTO) 0.2 %; HCT - HEMATOCRIT 44.7 % (37.0-47.0); HGB - HEMOGLOBIN 14.5 g/dL (12.0-16.0); LYMPHOCYTES # (AUTO) 2.2 10^3/uL (1.5-3.5); LYMPHOCYTES % (AUTO) 53.2 %; MEAN CORPUSCULAR HEMOGLOBIN 29.4 pg (27.0-31.0); MEAN CORPUSCULAR HGB CONC 32.4 g/dL (32.0-36.0); MEAN CORPUSCULAR VOLUME 90.5 fL (81.0-99.0); MEAN PLATELET VOLUME 9.9 fL (7.9-10.8); MONOCYTES # (AUTO) 0.3 10^3/uL (0.0-1.0); MONOCYTES % (AUTO) 7.6 %; NEUTROPHILS # (AUTO) 1.6 10^3/uL (1.5-6.6); NEUTROPHILS % (AUTO) 37.8 %; PLT - PLATELET COUNT 259 10^3/uL (130-450); RED BLOOD COUNT 4.94 10^6/uL (4.20-5.40); RED CELL DISTRIBUTION WIDTH 12.7 % (12.0-15.0); WHITE BLOOD COUNT 4.2 x10^3/uL (4.8-10.8)
[2023-12-05 13:22] LABS: ESTIMATED AVERAGE GLUCOSE 117 mg/dL (70-100); HEMOGLOBIN A1c% 5.7 % (4.27-6.07)
[2023-12-05 13:27] LABS: ALBUMIN 4.4 g/dL (3.2-5.5); ALBUMIN/GLOBULIN RATIO 1.8 (1.0-2.2); ALKALINE PHOSPHATASE 52 IU/L (42-121); ALT ALANINE AMINOTRANSFERASE 10 IU/L (10-60); AST ASPARTATE AMINOTRANSFERASE 17 IU/L (10-42); BILIRUBIN,TOTAL 0.4 mg/dL (0.2-1.0); BUN - BLOOD UREA NITROGEN 12 mg/dL (6-20); CALCIUM 10.1 mg/dL (8.5-10.3); CARBON DIOXIDE - CO2 32 mmol/L (21-32); CHLORIDE 103 mmol/L (101-111); CHOL/HDL RATIO 2.7 (<4.4); CHOLESTEROL 195 mg/dL; CREATININE 0.8 mg/dL (0.6-1.3); GFR - MDRD 69 (>89); GLUCOSE 97 mg/dL (74-104); HDL CHOLESTEROL 72 mg/dL; LDL CHOLESTEROL,CALCULATED 103 mg/dL; LDL/HDL RATIO 1.4 (<4.4); POTASSIUM 4.1 mmol/L (3.5-4.5); SODIUM 140 mmol/L (135-145); TOTAL PROTEIN 6.8 g/dL (6.4-8.9); TRIGLYCERIDES 102 mg/dL (48-352); VLDL CHOLESTEROL 20 mg/dL
== END 2023-12-05 09:46 | disposition home or self-care (01) ==
LOC: LAB.N 09:45
PROVIDERS: ATTEND Family Medicine
DX: E78.5 Hyperlipidemia, unspecified (principal); R63.4 Abnormal weight loss; R73.9 Hyperglycemia, unspecified; R03.0 Elevated blood-pressure reading, without diagnosis of hypertension; K21.9 Gastro-esophageal reflux disease without esophagitis; E53.8 Deficiency of other specified B group vitamins
CPT/HCPCS: 36415; 80053; 80061; 82607; 83036; 83721; 84443; 85025

== ENCOUNTER 2024-01-22 13:13 | Outpatient (CLI) | payer MEDICARE, OTHER | END 2024-01-22 23:59 | disposition EMS.NT | LOC: EMS 13:13 | DX: R41.82 Altered mental status, unspecified (principal) ==